=== PATIENT | female | born 1990 | race Two or more races ===

== ENCOUNTER 2024-10-07 19:44 | Emergency (ER) | payer OTHER ==
[~2024-10-07] VITALS: Ht 152.4 cm; Wt 61.4 kg
[2024-10-07 19:51] VITALS: BP 129/79; PULSE 80; RESP 20; TEMP 98; O2SAT 98
[2024-10-07 20:04] LABS: COVID AG,FIA SOURCE NASAL SWAB
[2024-10-07 20:23] LABS: INFLUENZA TYPE A NEGATIVE FOR TYPE A (NEGATIVE); INFLUENZA TYPE B NEGATIVE FOR TYPE B (NEGATIVE); SARS-COV2 (COVID) ANTIGEN,FIA Negative (Negative)
[2024-10-07] MEDS ORDERED: BENZ-227 PO (20:45)
[2024-10-07] MEDS ORDERED: GUAIF600 PO (20:45)
[2024-10-07] MEDS ORDERED: IBUP-1492 PO (20:45)
[2024-10-07] MEDS: IBUPROFEN 600 MG TABLET PO ONE (21:00)
[2024-10-07] MEDS: GuaiFENesin SR 600 MG ER TABLET PO ONE (21:00)
== END 2024-10-07 21:07 | disposition home or self-care (01) ==
LOC: EMS 19:44
DX: J06.9 Acute upper respiratory infection, unspecified (principal); B97.89 Other viral agents as the cause of diseases classified elsewhere; Z20.822 Contact with and (suspected) exposure to COVID-19
CPT/HCPCS: 87804; 99283